=== PATIENT | female | born 1960 | race Caucasian/White ===

== ENCOUNTER → 2016-11-01 | Outpatient (CLI) | payer BC ==
[~2016-11-01] MED LIST: ATOR20TA PO; BUPR300T43 PO; CYAN10007 PO; ESTR0.62 PO; HYDR-3811 PO; LVT.025T PO; METH10TA2 PO; MULT-35 PO; PROM25SU10 PR; QTP100T PO
--- NOTE | 2016-11-01 12:39 | Diagnostic Imaging Report ---
PROCEDURE: US Breast limited, left. TECHNIQUE: Multiple realtime grayscale images were obtained over the left breast in various projections. INDICATION: Left breast lesion. COMPARISON: Mammogram from the same day. FINDINGS: The lesion in question is not visible by ultrasound. Nonetheless, this likely represents a benign intramammary lymph node. There is no cyst or solid mass by ultrasound evaluation. There is no inflammation. IMPRESSION: Nonvisible lesion by ultrasound. Given the mammographic findings, recommend a six-month followup to assure stability. ACR BI-RADS Category 3: Probably benign findings. Dictated by: Dictated on workstation # [id number]
--- NOTE | 2016-11-01 14:02 | Diagnostic Imaging Report ---
INDICATION: Abnormal left breast mammogram COMPARISON: 05/19/15 and 10/12/16 Digital diagnostic mammogram of the left breast was obtained with cad. The current study was also evaluated with a Computer Aided Detection (CAD) system. FINDINGS: A small lesion in the posterior aspect of the left breast does persist and has a small hilum. This probably represents an intramammary lymph node. Ultrasound will be obtained for further evaluation. No microcalcifications are identified. IMPRESSION: Likely benign intramammary lymph node. Ultrasound will be obtained BI-RADS category 0. ACR BI-RADS Category 0: Incomplete. (Needs additional imaging evaluation). Result letter will be mailed to the patient. Note: At least 10% of breast cancer is not imaged by mammography. Dictated by: Dictated on workstation # [id number]
== END ==
LOC: RAD 09:59
PROVIDERS: ATTEND Family Medicine
DX: N64.89 Other specified disorders of breast (principal)
CPT/HCPCS: 76642; G0206

== ENCOUNTER → 2016-12-15 | Outpatient (CLI) | payer BC ==
[2016-12-15 20:26] LABS: BILIRUBIN,URINE Negative (Negative); CLARITY,URINE Clear; COLOR,URINE Yellow; GLUCOSE, URINE (UA) Negative (Negative); LEUKOCYTE ESTERASE, URINE Negative (Negative); PH,URINE 5.5 (5.0 - 8.0); UROBILINOGEN,URINE 0.2 mg/dL (0.2-1.0)
== END ==
LOC: LAB 20:07
PROVIDERS: ATTEND Family Medicine
DX: R35.0 Frequency of micturition (principal)
CPT/HCPCS: 81003; 87088